=== PATIENT | female | born 1965 | race Caucasian/White ===

== ENCOUNTER 2017-06-05 10:15 | Outpatient (CLI) | payer OTHER | END 2017-06-05 12:00 | disposition home or self-care (01) | LOC: SMA 10:15 | PROVIDERS: ATTEND Internal Medicine | DX: Z12.31 Encounter for screening mammogram for malignant neoplasm of breast (principal); R07.89 Other chest pain | CPT/HCPCS: 71046-TC; 77067 ==

== ENCOUNTER 2018-06-11 15:33 | Outpatient (CLI) | payer OTHER | END 2018-06-11 21:18 | disposition home or self-care (01) | LOC: SMA 15:33 | PROVIDERS: ATTEND Internal Medicine | DX: Z12.31 Encounter for screening mammogram for malignant neoplasm of breast (principal) | CPT/HCPCS: 77067 ==

== ENCOUNTER 2018-09-03 11:50 | Outpatient (CLI) | payer OTHER | END 2018-09-03 19:58 | disposition home or self-care (01) | LOC: SRD 11:50 | PROVIDERS: ATTEND Internal Medicine | DX: M25.512 Pain in left shoulder (principal) | CPT/HCPCS: 73030 ==

== ENCOUNTER 2018-12-17 10:44 | Outpatient (CLI) | payer OTHER | END 2018-12-17 20:59 | disposition home or self-care (01) | LOC: SMA 10:44 | PROVIDERS: ATTEND Internal Medicine | DX: R92.1 Mammographic calcification found on diagnostic imaging of breast (principal) | CPT/HCPCS: 76642; 77065 ==

== ENCOUNTER 2019-08-13 13:40 | Emergency (ER) | payer OTHER ==
[~2019-08-13] VITALS: Ht 175.3 cm; Wt 77.1 kg
[2019-08-13 13:44] VITALS: BP_SYST 154
--- NOTE | 2019-08-13 13:48 | NUR ---
PATIENT RETURNED TO WAITING ROOM PENDING BED ASSIGNMENT
--- NOTE | 2019-08-13 14:40 | NUR ---
Patient to ER bed 5 to gown for evaluation. Side rails up.
--- NOTE | 2019-08-13 14:45 | NUR ---
Patient presented to ER C/O left thigh pain. Patient ambulatory to ER, A&Ox4, skin pink & warm, pain 5/10, denies N/V/D. Patient state pain to left thigh radiates to posterior hip x1 week.
--- NOTE | 2019-08-13 14:55 | NUR ---
ER Dr. BLEVINS at bedside examining patient.
[2019-08-13] MEDS ORDERED: NACL 0.9% 1,000 ML IV ONE (14:59)
[2019-08-13] MEDS ORDERED: KETOROLAC TROMETHAMINE 30 MG VIAL IVP ONE (15:00)
[2019-08-13] MEDS ORDERED: DEXAMETHASONE SOD PHOSPHATE 10 MG/ML VIAL IVP ONE (15:15)
[2019-08-13 15:30] LABS: BASOPHILS % (AUTO) 0.8 % (0.0-2.0); EOSINOPHILS % (AUTO) 0.9 % (0.0-4.0); HEMATOCRIT 44.5 % (36-48); HEMOGLOBIN 14.5 g/dL (12.0-16.0); LYMPHOCYTES # (AUTO) 2.1 K/uL (1.0-5.5); LYMPHOCYTES % (AUTO) 44.8 % (20.5-51.5); MEAN CORPUSCULAR HEMOGLOBIN 28 pg (27-31); MEAN CORPUSCULAR HGB CONC 33 % (32-36); MEAN CORPUSCULAR VOLUME 84 fL (79.0-98.0); MONOCYTES # (AUTO) 0.3 K/uL (0.0-1.0); MONOCYTES % (AUTO) 6.2 % (1.7-9.3); NEUTROPHILS # (AUTO) 2.2 K/uL (1.8-7.7); NEUTROPHILS % (AUTO) 47.3 % (40.0-70.0); PLATELET COUNT (AUTO) 286 K/uL (130-430); RED BLOOD CELL COUNT(AUTO) 5.29 MIL/uL (4.2-6.2); RED CELL DISTRIBUTION WIDTH 13.9 % (9.0-15.0); WHITE BLOOD COUNT (AUTO) 4.7 K/uL (4.8-10.8)
[2019-08-13 15:40] LABS: CALCIUM 9.2 mg/dL (8.4-11.0); CREATININE 0.72 mg/dL (0.55-1.30); POTASSIUM 4.6 mmol/L (3.5-5.1)
[2019-08-13 15:46] LABS: ALBUMIN 3.6 g/dL (3.4-4.8); TOTAL BILIRUBIN 0.8 mg/dL (0.0-1.0)
--- NOTE | 2019-08-13 15:55 | NUR ---
# 20 gauge angiocath placed to LEFT AC. Use of asceptic technique. Opsite placed over site. Blood return noted. Blood for lab drawn from site. Flushed with 10 cc of normal saline. No evidence of infiltration noted. Patient tolerated well. Medicated per MD orders. IVF infusing with no s/s of infiltration at this time. Will cont to monitor
[2019-08-13 16:08] LABS: BILIRUBIN,URINE NEGATIVE (NEGATIVE); BLOOD, URINE NEGATIVE (NEGATIVE); CLARITY/URINE CLEAR (CLEAR); COLOR,URINE YELLOW (YELLOW); GLUCOSE,URINE NEGATIVE (NEGATIVE); KETONES,URINE NEGATIVE (NEGATIVE); LEUKOCYTE ESTERASE ,URINE NEGATIVE (NEGATIVE); NITRITE, URINE NEGATIVE (NEGATIVE); PROTEIN URINE NEGATIVE (NEGATIVE); UROBILINOGEN,URINE 0.2 (0.2-1.0)
--- NOTE | 2019-08-13 17:00 | NUR ---
PATIENT RESTING IN [facility]
[2019-08-13 18:18] VITALS: BP_SYST 151
--- NOTE | 2019-08-13 18:19 | NUR ---
Patient given written and verbal discharge instructions and verbalizes understanding. ER MD discussed with patient the results and treatment provided. Patient in stable condition. ID arm band removed. IV catheter removed intact and dressing applied, no active bleeding. Rx of FLEXERIL & NAPROSYN given. Patient educated on pain management and to follow up with PMD. Pain Scale 3/10. Opportunity for questions provided and answered. Medication side effect fact sheet provided.
== END 2019-08-13 18:18 | disposition home or self-care (01) ==
LOC: SED 13:40
DX: M54.5 Low back pain (principal); M54.31 Sciatica, right side; J45.909 Unspecified asthma, uncomplicated
CPT/HCPCS: 36415; 72100; 80053; 81003; 85025; 96374; 96375; 99284; J1100; J1885; J7030

== ENCOUNTER 2019-10-14 14:29 | Outpatient (CLI) | payer OTHER | END 2019-10-14 19:21 | disposition home or self-care (01) | LOC: SUS 14:29 | PROVIDERS: ATTEND Internal Medicine | DX: R92.2 Inconclusive mammogram (principal) | CPT/HCPCS: 76641; 77066 ==

== ENCOUNTER 2020-05-18 10:16 | Outpatient (CLI) | payer OTHER | END 2020-05-18 21:27 | disposition home or self-care (01) | LOC: SMA 10:16 | DX: R92.1 Mammographic calcification found on diagnostic imaging of breast (principal); M25.511 Pain in right shoulder | CPT/HCPCS: 73030; 76641; 77066 ==